=== PATIENT | male | born 1970 | race Caucasian/White ===

== ENCOUNTER 2017-08-28 09:35 | Observation (INO) | payer OTHER ==
[2017-08-28] MEDS ORDERED: Aspirin 81 MG Tab.Chew PO ONE (09:43)
[2017-08-28] MEDS ORDERED: Sodium Chloride 0.9% 10 ML Syringe FLUSH PRN (09:43)
[2017-08-28] MEDS ORDERED: Sodium Chloride 0.9% 2.5 ML Syringe FLUSH PRN (09:43)
--- NOTE | 2017-08-28 09:46 | EDM.PDOC ---
ED HPI GENERAL MEDICAL PROBLEM - General Chief Complaint: Chest Pain Stated Complaint: CHEST PAIN Time Seen by Provider: 08/28/17 09:42 - History of Present Illness INITIAL COMMENTS - FREE TEXT/NARRATIVE: HISTORY AND PHYSICAL: History of present illness: The patient is a 47-year-old male with a history of borderline elevated cholesterol and erectile dysfunction for which he takes a cholesterol med and Cialis daily and follows in our clinic and presents with left-sided chest pressure/pain started at midnight last night. He says that over the last almost 10 hours is been coming and going in the strongest that is been is 4/10. Currently in the ER it as a 0/10. He says the pain doesn't radiate but he does get numbness that shoots down his left arm and is mostly localized in his left thumb with this discomfort. He has had a headache on and off but currently has no headache. He says with the discomfort episodes he gets a little short of breath but no nausea no diaphoresis no abdominal pain. He has no leg pain or swelling and had a normal day yesterday without any systemic complaints of upper respiratory infections chest pain. Patient has been eating and drinking normally and admits to be a 2 pack-a-day smoker. He denies drug use. He has no significant family history and has never had a cardiac workup. He says at work he has relatively active and never has chest pain or shortness of breath. Patient took no medications prior to coming here. Initially the patient and want to come here but he called his boss who told him that should get checked out. Please note the patient did take his Cialis this morning Review of systems: As per history of present illness and below otherwise all systems reviewed and negative. Past medical history: As per history of present illness and as reviewed below otherwise noncontributory. Surgical history: As per history of present illness and as reviewed below otherwise noncontributory. Social history: No reported history of drug or alcohol abuse. Family history: As per history of present illness and as reviewed below otherwise noncontributory. Physical exam: Gen.: Well-developed thin man who is nontoxic and speaking clearly and easily in the ER. Vital signs were noted by me. HEENT: Atraumatic, normocephalic, negative for conjunctival pallor or scleral icterus, mucous membranes moist, throat clear, neck supple, nontender, trachea midline. Lungs: Clear to auscultation, breath sounds equal bilaterally, chest nontender. No work of breathing or sensory muscle use Heart: S1S2, regular, negative for clicks, rubs, or JVD. Abdomen: Soft, nondistended, nontender. Negative for masses or hepatosplenomegaly. NABS. Pelvis: Stable nontender. Genitourinary: Deferred. Rectal: Deferred. Extremities: Atraumatic, negative for cords or calf pain. Neurovascular unremarkable. No pedal edema Neuro: Awake, alert, oriented. Cranial nerves II through XII unremarkable. Cerebellum unremarkable. Motor and sensory unremarkable throughout. Exam nonfocal. Diagnostics: EKG x 2 chest x-ray CBC CMP INR troponin Therapeutics: IV O2 monitor aspirin morphine 1032: I discussed with the patient all testing results and recommended observation admission. He says that right now he is having a slight discomfort which she rates as a 1/10 and I will repeat the EKG and give him a dose of morphine. He is aware that I'm unable to give him nitrates due to his daily Cialis use. He says that along with the chest discomfort he is having the numbness again which is only from his elbow down to his hand and does not involve his chest wall or shoulder/upper extremity. There is no weakness. I will also contact the hospitalist and discussed this case with him. 1047: Dr. Barfield is aware of the case and is here seeing the patient. About 5 or 10 minutes ago I went into discussed all testing results with the patient and he said he was having some discomfort at a 1/10 and had this tingling sensation from his elbow down to his fingers but not proximally. Repeat EKG was performed which is unchanged. We'll give him some morphine and continue to monitor these symptoms as an inpatient Impression: Episodic chest pain/anginal equivalent Definitive disposition and diagnosis as appropriate pending reevaluation and review of above. chest Pain Score (Numeric/FACES): 1 - Related Data Allergies Allergy/AdvReac Type Severity Reaction Status Date / Time No Known Allergies Allergy Verified 08/28/17 09:52 Home Meds: Home Meds Tadalafil [Cialis] 5 mg PO DAILY 08/28/17 [History] atorvaSTATin [Lipitor] 40 mg PO BEDTIME 08/28/17 [History] Social & Family History - Tobacco Use Smoking Status *Q: Current Every Day Smoker Second Hand Smoke Exposure: No - Recreational Drug Use Recreational Drug Use: No ED ROS GENERAL - Review of Systems Review Of Systems: ROS reveals no pertinent complaints other than HPI. ED EXAM, GENERAL - Physical Exam Exam: See Below (See dictation) Course - Vital Signs Last Recorded V/S: Last Vital Signs Temp 36.4 C 08/28/17 09:35 Pulse 85 08/28/17 09:35 Resp 18 08/28/17 09:35 BP 152/103 H 08/28/17 09:35 Pulse Ox 99 08/28/17 09:42 - Orders/Labs/Meds Orders: Active Orders 24 hr Category Date Time Status Patient Status [ADT] Stat ADT 08/28/17 10:49 Ordered Cardiac Monitoring [RC] . DIRECTED Care 08/28/17 09:42 Active EKG Documentation Completion [RC] STAT Care 08/28/17 09:42 Active EKG Documentation Completion [RC] STAT Care 08/28/17 10:35 Active Oxygen Therapy, ED [RC] ASDIRECTED Care 08/28/17 09:42 Active Pulse Oximetry [RC] ASDIRECTED Care 08/28/17 09:42 Active Sodium Chloride 0.9% [Saline Flush] Med 08/28/17 09:43 Active 10 ml FLUSH ASDIRECTED PRN Sodium Chloride 0.9% [Saline Flush] Med 08/28/17 09:43 Active 2.5 ml FLUSH ASDIRECTED PRN Saline Lock Insert [OM.PC] Stat Oth 08/28/17 09:42 Ordered Medication Orders Sodium Chloride (Saline Flush) 10 ml FLUSH ASDIRECTED PRN PRN Reason: Keep Vein Open Last Admin: 08/28/17 09:48 Dose: 10 ml Sodium Chloride (Saline Flush) 2.5 ml FLUSH ASDIRECTED PRN PRN Reason: Keep Vein Open Last Admin: 08/28/17 09:48 Dose: 2.5 ml Labs: Laboratory Tests 08/28/17 08/28/17 08/28/17 Range/Units 09:40 09:40 09:40 WBC 14.88 H (4.0-11.0) K/uL RBC 4.74 (4.50-5.90) M/uL Hgb 16.4 (13.0-17.0) g/dL Hct 47.3 (38.0-50.0) % MCV 99.8 H (80.0-98.0) fL MCH 34.6 H (27.0-32.0) pg MCHC 34.7 (31.0-37.0) g/dL RDW Std Deviation 50.2 (28.0-62.0) fl RDW Coeff of Yan 14 (11.0-15.0) % Plt Count 240 (150-400) K/uL MPV 10.10 (7.40-12.00) fL Neut % (Auto) 80.6 H (48.0-80.0) % Lymph % (Auto) 11.8 L (16.0-40.0) % [place] % (Auto) 6.7 (0.0-15.0) % Eos % (Auto) 0.7 (0.0-7.0) % Baso % (Auto) 0.2 (0.0-1.5) % Neut # (Auto) 12.0 H (1.4-5.7) K/uL Lymph # (Auto) 1.8 (0.6-2.4) K/uL [place] # (Auto) 1.0 H (0.0-0.8) K/uL Eos # (Auto) 0.1 (0.0-0.7) K/uL Baso # (Auto) 0.0 (0.0-0.1) K/uL Nucleated RBC % 0.0 /100WBC Nucleated RBCs # 0 K/uL INR 0.98 (0.86-1.11) Sodium 138 (136-146) mmol/L Potassium 3.8 (3.5-5.1) mmol/L Chloride 105 (98-110) mmol/L Carbon Dioxide 23 (21-31) mmol/L BUN 5 L (6.0-23.0) mg/dL Creatinine 0.8 (0.6-1.5) mg/dL Est Cr Clr Drug Dosing 140.15 mL/min Estimated GFR (MDRD) > 60.0 ml/min Glucose 99 (60-110) mg/dL Calcium 9.7 (8.8-10.8) mg/dL Total Bilirubin 0.8 (0.1-1.5) mg/dL AST 19 (5-40) IU/L ALT 15 (8-54) IU/L Alkaline Phosphatase 131 (40-150) Troponin I < 0.10 (0.0-0.29) NG/ML Total Protein 7.9 (6.0-8.0) g/dL Albumin 4.4 (3.5-5.0) g/dL Globulin 3.5 (2.0-3.5) g/dL Albumin/Globulin Ratio 1.3 (1.3-2.8) Meds: Medications Generic Name Dose Route Start Last Admin Trade Name Freq PRN Reason Stop Dose Admin Sodium Chloride 10 ml 08/28/17 09:43 08/28/17 09:48 Saline Flush FLUSH 10 ml ASDIRECTED PRN Administration Keep Vein Open Sodium Chloride 2.5 ml 08/28/17 09:43 08/28/17 09:48 Saline Flush FLUSH 2.5 ml ASDIRECTED PRN Administration Keep Vein Open Discontinued Medications Generic Name Dose Route Start Last Admin Trade Name Freq PRN Reason Stop Dose Admin Aspirin 324 mg 08/28/17 09:43 08/28/17 09:47 Aspirin PO 08/28/17 09:44 324 mg ONETIME ONE Administration Morphine Sulfate 2 mg 08/28/17 10:35 08/28/17 10:44 Morphine IVPUSH 08/28/17 10:36 2 mg ONETIME ONE Administration Departure - Departure Time of Disposition: 10:50 Disposition: Refer to Observation Condition: Good Clinical Impression: Chest pain Qualifiers: Chest pain type: unspecified Qualified Code(s): R07.9 - Chest pain, unspecified - Discharge Information Referrals: PCP,Unknown [Primary Care Provider] - Forms: ED Department Discharge - My Orders Last 24 Hours: My Active Orders 08/28/17 09:42 Cardiac Monitoring [RC] . DIRECTED EKG Documentation Completion [RC] STAT Oxygen Therapy, ED [RC] ASDIRECTED Pulse Oximetry [RC] ASDIRECTED Saline Lock Insert [OM.PC] Stat 08/28/17 09:43 Sodium Chloride 0.9% [Saline Flush] 10 ml FLUSH ASDIRECTED PRN Sodium Chloride 0.9% [Saline Flush] 2.5 ml FLUSH ASDIRECTED PRN 08/28/17 10:35 EKG Documentation Completion [RC] STAT 08/28/17 10:49 Patient Status [ADT] Stat - Assessment/Plan Last 24 Hours: My Active Orders 08/28/17 09:42 Cardiac Monitoring [RC] . DIRECTED EKG Documentation Completion [RC] STAT Oxygen Therapy, ED [RC] ASDIRECTED Pulse Oximetry [RC] ASDIRECTED Saline Lock Insert [OM.PC] Stat 08/28/17 09:43 Sodium Chloride 0.9% [Saline Flush] 10 ml FLUSH ASDIRECTED PRN Sodium Chloride 0.9% [Saline Flush] 2.5 ml FLUSH ASDIRECTED PRN 08/28/17 10:35 EKG Documentation Completion [RC] STAT 08/28/17 10:49 Patient Status [ADT] Stat
--- NOTE | 2017-08-28 10:16 | CR ---
EXAMINATION: Portable chest radiograph. HISTORY: Shortness of breath. FINDINGS: The trachea is midline. The cardiomediastinal silhouette is within normal limits. No pulmonary infilt rates, effusions or pneumothorax. Osseous structures appear unremarkable. IMPRESSION: No acute cardiopulmonary process.
[2017-08-28 10:26] LABS: CHLORIDE,CL 105 mmol/L (98-110); SODIUM,NA 138 mmol/L (136-146)
[2017-08-28] MEDS ORDERED: Morphine 2 MG/ML Syringe IVPUSH ONE (10:35)
[2017-08-28] MEDS ORDERED: Morphine 2 MG/ML Syringe IVPUSH PRN (11:42)
[2017-08-28] MEDS ORDERED: Enoxaparin 40 MG/0.4 ML Syringe SUBCUT SCH (11:45)
[2017-08-28] MEDS ORDERED: Nicotine 21 MG/24 Hr Patch TRDERM SCH (12:00)
--- NOTE | 2017-08-28 13:41 | PCM.HP ---
<Bryce Guillermo - Last Filed: 08/28/17 13:36> H&P History of Present Illness - General Date of Service: 08/28/17 Source of Information: Patient History Limitations: Reports: No Limitations - History of Present Illness Initial Comments - Free Text/Narative: 47-year-old male with a past history of hyperlipidemia presents to the emergency room today complaining of chest pain onset sometime last night. Patient tells me that he has been expressing chest "tightness "in the center of his chest radiating into his left thumb. He also notices that he had some numbness and tingling of the thumb. He feels that it also intermittently he stands up into his elbow and causes numbness throughout. Currently, he states that his chest pain is about a 1 out of 10. He denies any fevers, chills, shortness of breath, nausea or vomiting. ER course EKG shows normal rhythm without ST elevation Troponin first set is negative Full dose aspirin was given Nitroglycerin was held secondary to patient's daily Cialis use chest Pain Score (Numeric/FACES): 2 - Related Data Allergies/Adverse Reactions: Allergies Allergy/AdvReac Type Severity Reaction Status Date / Time No Known Allergies Allergy Verified 08/28/17 09:52 Home Medications: Home Meds Tadalafil [Cialis] 5 mg PO DAILY 08/28/17 [History] atorvaSTATin [Lipitor] 40 mg PO BEDTIME 08/28/17 [History] Past Medical History - Past Health History Medical/Surgical History: Denies Medical/Surgical History HEENT History: Reports: Impaired Vision Other HEENT History: with glasses Cardiovascular History: Reports: High Cholesterol - Infectious Disease History Infectious Disease History: Reports: Chicken Pox Social & Family History - Family History Family Medical History: Noncontributory - Tobacco Use Smoking Status *Q: Current Every Day Smoker Years of Tobacco use: 30 Packs/Tins Daily: 2 Second Hand Smoke Exposure: No - Caffeine Use Caffeine Use: Reports: Coffee, Soda Caffeine Use Comment: 2 cups daily - Alcohol Use Days Per Week of Alcohol Use: 7 Number of Drinks Per Day: 2 Total Drinks Per Week: 14 Date of Last Drink: 08/27/17 - Recreational Drug Use Recreational Drug Use: No H&P Review of Systems - Review of Systems: Review Of Systems: See Below General: Reports: No Symptoms HEENT: Reports: No Symptoms Pulmonary: Denies: Shortness of Breath, Wheezing, Pleuritic Chest Pain, Cough, Sputum Cardiovascular: Reports: Chest Pain. Denies: Palpitations, Dyspnea on Exertion Gastrointestinal: Denies: Abdominal Pain, Black Stool, Bloody Stool, Constipation, Diarrhea Musculoskeletal: Reports: Other (See history of present illness) Skin: Reports: No Symptoms. Denies: Cyanosis, Jaundice, Mottled Psychiatric: Reports: No Symptoms Neurological: Reports: Numbness, Other (See history of present illness). Denies : Seizure, Syncope, Tingling, Tremors Hematologic/Lymphatic: Reports: No Symptoms Immunologic: Reports: No Symptoms Exam - Exam Exam: See Below - Vital Signs Vital Signs: Last Vital Signs Temp 36.4 C 08/28/17 11:42 Pulse 75 08/28/17 11:42 Resp 18 08/28/17 11:42 BP 145/96 H 08/28/17 11:42 Pulse Ox 97 08/28/17 11:42 Weight: 86.636 kg - Exam General: Alert, Oriented, Cooperative HEENT: Conjunctiva Clear, EACs Clear, EOMI, Hearing Intact, Mucosa Moist & Tye , Nares Patent Neck: Supple, Trachea Midline, +2 Carotid Pulse wo Bruit. No: Lymphadenopathy, Carotid Bruit, JVD Lungs: Clear to Auscultation, Normal Respiratory Effort Cardiovascular: Regular Rate, Regular Rhythm, Normal S1, Normal S2 GI/Abdominal Exam: Normal Bowel Sounds, Soft, Non-Tender Back Exam: No: CVA Tenderness (L), CVA Tenderness (R), Paraspinal Tenderness Extremities: Normal Inspection, Normal Range of Motion, No Pedal Edema, Normal Capillary Refill Skin: Warm, Intact Neurological: Cranial Nerves Intact Neuro Extensive - Mental Status: Alert, Oriented x3 Neuro Extensive - Motor, Sensory, Reflexes: CN II-XII Intact Psychiatric: Alert, Normal Affect, Normal Mood - Patient Data Result Diagrams: 08/28/17 09:40 08/28/17 09:40 *Q Meaningful Use (ADM) - VTE *Q VTE Criteria *Q: - Stroke *Q Stroke Criteria *Q: - AMI *Q AMI Criteria *Q: Problem List Initiated/Reviewed/Updated: Yes Orders Last 24hrs: Active Orders 24 hr Category Date Time Status Oxygen Therapy [RC] PRN Care 08/28/17 11:42 Active Telemetry Monitoring [Cardiac Monitoring] [RC] Q8H Care 08/28/17 10:57 Active Up ad Argelia [RC] ASDIRECTED Care 08/28/17 11:42 Active VTE/DVT Education [RC] PER UNIT ROUTINE Care 08/28/17 11:42 Active Vital Signs [RC] Q4H Care 08/28/17 11:42 Active Regular Diet [DIET] Diet 08/28/17 Lunch Active BASIC METABOLIC PANEL,BMP [CHEM] AM Lab 08/29/17 05:11 Ordered CBC WITH AUTO DIFF [HEME] AM Lab 08/29/17 05:11 Ordered TROPONIN I [CHEM] Routine Lab 08/28/17 15:00 Ordered TROPONIN I [CHEM] Routine Lab 08/28/17 21:00 Ordered Enoxaparin [Lovenox] Med 08/28/17 11:45 Active 40 mg SUBCUT Q24H Morphine Med 08/28/17 11:42 Active 2 mg IVPUSH Q2H PRN Nicotine [Habitrol] Med 08/28/17 12:00 Active 21 mg TRDERM Q24H atorvaSTATin [Lipitor] Med 08/28/17 21:00 Active 40 mg PO BEDTIME Resuscitation Status Routine Resus Stat 08/28/17 11:42 Ordered Medication Orders Atorvastatin Calcium (Lipitor) [address] [facility] Enoxaparin Sodium (Lovenox) [address] [facility] Last Admin: 08/28/17 12:11 Dose: 40 mg Morphine Sulfate (Morphine) 2 mg IVPUSH Q2H PRN PRN Reason: Pain (severe 7-10) Stop: 08/29/17 11:43 Nicotine (Habitrol) [address] [facility] Last Admin: 08/28/17 12:11 Dose: 21 mg Sodium Chloride (Saline Flush) 10 ml FLUSH ASDIRECTED PRN PRN Reason: Keep Vein Open Last Admin: 08/28/17 09:48 Dose: 10 ml Sodium Chloride (Saline Flush) 2.5 ml FLUSH ASDIRECTED PRN PRN Reason: Keep Vein Open Last Admin: 08/28/17 09:48 Dose: 2.5 ml Assessment/Plan Comment:: Assessment #1. ACS rule out #2. Chest pain #3. Numbness in the left hand #4. History of hyperlipidemia #5. History of BPH #6. History of significant tobacco abuse #7. History of alcohol use Plan #1. Admit to the regular floor for observation #2. Continuous telemetry #3. Vital signs per floor routine, ins and outs per floor routine #4. Troponin every 6 hours 2 more sets #5. Regular diet #6. Nicotine patch as per Dr. Barfield recommendation #7. Continue home dose of Crestor #8. Anticipate discharge tomorrow <Jhon Barfield - Last Filed: 08/29/17 15:41> H&P History of Present Illness - General Admit Problem/Dx: I performed a history and physical examination of the patient and I have discussed the management with the resident. I have reviewed the residents note and agree with the documented findings and plan of care Exam - Vital Signs Vital Signs: Last Vital Signs Temp 37.1 C 08/29/17 07:11 Pulse 94 08/29/17 07:11 Resp 18 08/29/17 07:11 BP 149/79 H 08/29/17 07:11 Pulse Ox 95 08/29/17 07:11 - Patient Data Lab Results Last 24 hrs: Laboratory Results - last 24 hr 08/28/17 08/29/17 08/29/17 Range/Units 20:57 04:53 04:53 WBC 12.17 H (4.0-11.0) K/uL RBC 4.44 L (4.50-5.90) M/uL Hgb 15.1 (13.0-17.0) g/dL Hct 44.7 (38.0-50.0) % MCV 100.7 H (80.0-98.0) fL MCH 34.0 H (27.0-32.0) pg MCHC 33.8 (31.0-37.0) g/dL RDW Std Deviation 51.4 (28.0-62.0) fl RDW Coeff of Yan 14 (11.0-15.0) % Plt Count 228 (150-400) K/uL MPV 10.10 (7.40-12.00) fL Neut % (Auto) 75.2 (48.0-80.0) % Lymph % (Auto) 14.4 L (16.0-40.0) % [place] % (Auto) 9.0 (0.0-15.0) % Eos % (Auto) 1.2 (0.0-7.0) % Baso % (Auto) 0.2 (0.0-1.5) % Neut # (Auto) 9.1 H (1.4-5.7) K/uL Lymph # (Auto) 1.8 (0.6-2.4) K/uL [place] # (Auto) 1.1 H (0.0-0.8) K/uL Eos # (Auto) 0.2 (0.0-0.7) K/uL Baso # (Auto) 0.0 (0.0-0.1) K/uL Nucleated RBC % 0.0 /100WBC Nucleated RBCs # 0 K/uL Sodium 141 (136-146) mmol/L Potassium 4.1 (3.5-5.1) mmol/L Chloride 110 (98-110) mmol/L Carbon Dioxide 22 (21-31) mmol/L BUN 11 (6.0-23.0) mg/dL Creatinine 0.8 (0.6-1.5) mg/dL Est Cr Clr Drug Dosing 139.88 mL/min Estimated GFR (MDRD) > 60.0 ml/min Glucose 99 (60-110) mg/dL Calcium 9.2 (8.8-10.8) mg/dL Troponin I < 0.10 (0.0-0.29) NG/ML Result Diagrams: 08/29/17 04:53 08/29/17 04:53 *Q Meaningful Use (ADM) - VTE *Q VTE Criteria *Q: - Stroke *Q Stroke Criteria *Q: - AMI *Q AMI Criteria *Q: Orders Last 24hrs: Active Orders 24 hr Category Date Time Status Discontinue Telemetry Monitoring [Cardiac Monitoring Care 08/29/17 08:41 Active Discontinue] [RC] Click to Edit Ready for Discharge [RC] PER UNIT ROUTINE Care 08/29/17 08:33 Active
[2017-08-28] MEDS ORDERED: Alum Hydrox/Mag Hydrox/Simeth 15 ML, Lidocaine 2% 5 ML PO ONE ×2 (18:22)
[2017-08-28] MEDS ORDERED: atorvaSTATin 40 MG Tab PO SCH (21:00)
[2017-08-28] MEDS ORDERED: Ketorolac 30 MG/ML SDV IVPUSH ONE (22:00)
[2017-08-29 05:30] LABS: CHLORIDE,CL 110 mmol/L (98-110); SODIUM,NA 141 mmol/L (136-146)
[2017-08-29 07:12] VITALS: BP 149/79
--- NOTE | 2017-08-29 11:21 | PCM.DCSUM1 ---
<Bryce Guillermo - Last Filed: 08/29/17 11:15> Discharge Summary - Hospital Course Free Text/Narrative:: Admission date August 28, 2017 Discharge date August 29, 2017 Admission diagnosis #1. ACS rule out #2. Chest pain #3. Numbness in the left hand #4. History of hyperlipidemia, BPH #5. History of tobacco abuse #6. History of alcohol use Discharge diagnosis #1. ACS ruled out #2. Chest pain that resolved #3. History of hyperlipidemia, BPH, tobacco use, alcohol use Hospital course: This is a 47-year-old male with the above past medical history as mentioned that presented to the emergency room on 28 August complaining of chest pain which began around midnight at that day. He described it as centralized chest pain accompanied by numbness in his left thumb. He described it more of tightness rather than pain. Patient was then admitted to the floor for observation and ACS rule out after obtaining a negative troponin in the emergency room along with a unremarkable chest x-ray and EKG. He was given a full dose aspirin in the ER. Nitroglycerin was held secondary to Cialis use daily. On the floor, patient was placed on telemetry, troponins were trended which are negative 3. Later on in the evening of the same day of admission, this patient was complaining of persistent chest pain with a another reassuring EKG. He was given Toradol once which did appear to help with the pain. At the time of discharge, the patient was symptom-free. He denied any chest pain, palpitations, nausea or vomiting or any numbness or tingling. Follow-up: Patient to follow-up with Dr. Guillermo, primary care provider along with cardiology. He told me that he'll be driving out of town this weekend so appointments were made for the following week. Return precautions: Patient is advised to return to seek medical care if he expresses chest pain, palpitations, numbness or tingling again. Patient agrees to the plan. He is also scheduled for a outpatient nuclear stress test. - Discharge Data Discharge Date: 08/29/17 Discharge Disposition: Home, Self-Care 01 Condition: Stable - Patient Instructions Diet: Regular Diet as Tolerated Driving: May Drive Today Showering/Bathing: May Shower - Discharge Plan Home Medications: Home Meds Tadalafil [Cialis] 5 mg PO DAILY 08/28/17 [History] atorvaSTATin [Lipitor] 40 mg PO BEDTIME 08/28/17 [History] Patient Handouts: Chest Wall Pain, [id number], Nonspecific Chest Pain, Easy- to-Read Referrals: Miguel Cline MD [Physician] - 09/23/17 10:00 am () Bryce Guillermo MD [Resident] - 09/11/17 2:30 pm - Discharge Summary/Plan Comment DC Time >30 min.: No Discharge Summary/Plan Comment: Admission date August 28, 2017 Discharge date August 29, 2017 Admission diagnosis #1. ACS rule out #2. Chest pain #3. Numbness in the left hand #4. History of hyperlipidemia, BPH #5. History of tobacco abuse #6. History of alcohol use Discharge diagnosis #1. ACS ruled out #2. Chest pain that resolved #3. History of hyperlipidemia, BPH, tobacco use, alcohol use Hospital course: This is a 47-year-old male with the above past medical history as mentioned that presented to the emergency room on 28 August complaining of chest pain which began around midnight at that day. He described it as centralized chest pain accompanied by numbness in his left thumb. He described it more of tightness rather than pain. Patient was then admitted to the floor for observation and ACS rule out after obtaining a negative troponin in the emergency room along with a unremarkable chest x-ray and EKG. He was given a full dose aspirin in the ER. Nitroglycerin was held secondary to Cialis use daily. On the floor, patient was placed on telemetry, troponins were trended which are negative 3. Later on in the evening of the same day of admission, this patient was complaining of persistent chest pain with a another reassuring EKG. He was given Toradol once which did appear to help with the pain. At the time of discharge, the patient was symptom-free. He denied any chest pain, palpitations, nausea or vomiting or any numbness or tingling. Follow-up: Patient to follow-up with Dr. Guillermo, primary care provider along with cardiology. He told me that he'll be driving out of town this weekend so appointments were made for the following week. Return precautions: Patient is advised to return to seek medical care if he expresses chest pain, palpitations, numbness or tingling again. Patient agrees to the plan. He is also scheduled for a outpatient nuclear stress test. - Patient Data Vitals - Most Recent: Last Vital Signs Temp 37.1 C 08/29/17 07:11 Pulse 94 08/29/17 07:11 Resp 18 08/29/17 07:11 BP 149/79 H 08/29/17 07:11 Pulse Ox 95 08/29/17 07:11 Weight - Most Recent: 86.636 kg I&O - Last 24 hours: Intake & Output 08/28/17 08/29/17 08/29/17 22:59 06:59 14:59 Intake Total 150 635 500 Output Total 550 675 Balance -400 -40 500 Lab Results - Last 24 hrs: Laboratory Results - last 24 hr 08/28/17 08/28/17 08/29/17 Range/Units 15:15 20:57 04:53 WBC 12.17 H (4.0-11.0) K/uL RBC 4.44 L (4.50-5.90) M/uL Hgb 15.1 (13.0-17.0) g/dL Hct 44.7 (38.0-50.0) % MCV 100.7 H (80.0-98.0) fL MCH 34.0 H (27.0-32.0) pg MCHC 33.8 (31.0-37.0) g/dL RDW Std Deviation 51.4 (28.0-62.0) fl RDW Coeff of Yan 14 (11.0-15.0) % Plt Count 228 (150-400) K/uL MPV 10.10 (7.40-12.00) fL Neut % (Auto) 75.2 (48.0-80.0) % Lymph % (Auto) 14.4 L (16.0-40.0) % Owsley % (Auto) 9.0 (0.0-15.0) % Eos % (Auto) 1.2 (0.0-7.0) % Baso % (Auto) 0.2 (0.0-1.5) % Neut # (Auto) 9.1 H (1.4-5.7) K/uL Lymph # (Auto) 1.8 (0.6-2.4) K/uL Owsley # (Auto) 1.1 H (0.0-0.8) K/uL Eos # (Auto) 0.2 (0.0-0.7) K/uL Baso # (Auto) 0.0 (0.0-0.1) K/uL Nucleated RBC % 0.0 /100WBC Nucleated RBCs # 0 K/uL Sodium (136-146) mmol/L Potassium (3.5-5.1) mmol/L Chloride (98-110) mmol/L Carbon Dioxide (21-31) mmol/L BUN (6.0-23.0) mg/dL Creatinine (0.6-1.5) mg/dL Est Cr Clr Drug Dosing mL/min Estimated GFR (MDRD) ml/min Glucose (60-110) mg/dL Calcium (8.8-10.8) mg/dL Troponin I < 0.10 < 0.10 (0.0-0.29) NG/ML 08/29/17 Range/Units 04:53 WBC (4.0-11.0) K/uL RBC (4.50-5.90) M/uL Hgb (13.0-17.0) g/dL Hct (38.0-50.0) % MCV (80.0-98.0) fL MCH (27.0-32.0) pg MCHC (31.0-37.0) g/dL RDW Std Deviation (28.0-62.0) fl RDW Coeff of Yan (11.0-15.0) % Plt Count (150-400) K/uL MPV (7.40-12.00) fL Neut % (Auto) (48.0-80.0) % Lymph % (Auto) (16.0-40.0) % Owsley % (Auto) (0.0-15.0) % Eos % (Auto) (0.0-7.0) % Baso % (Auto) (0.0-1.5) % Neut # (Auto) (1.4-5.7) K/uL Lymph # (Auto) (0.6-2.4) K/uL Owsley # (Auto) (0.0-0.8) K/uL Eos # (Auto) (0.0-0.7) K/uL Baso # (Auto) (0.0-0.1) K/uL Nucleated RBC % /100WBC Nucleated RBCs # K/uL Sodium 141 (136-146) mmol/L Potassium 4.1 (3.5-5.1) mmol/L Chloride 110 (98-110) mmol/L Carbon Dioxide 22 (21-31) mmol/L BUN 11 (6.0-23.0) mg/dL Creatinine 0.8 (0.6-1.5) mg/dL Est Cr Clr Drug Dosing 139.88 mL/min Estimated GFR (MDRD) > 60.0 ml/min Glucose 99 (60-110) mg/dL Calcium 9.2 (8.8-10.8) mg/dL Troponin I (0.0-0.29) NG/ML Med Orders - Current: Current Medications Discontinued Medications Aspirin (Aspirin) 324 mg PO ONETIME ONE Stop: 08/28/17 09:44 Last Admin: 08/28/17 09:47 Dose: 324 mg Atorvastatin Calcium (Lipitor) 40 mg PO BEDTIME [facility] Last Admin: 08/28/17 21:48 Dose: 40 mg Al Hydroxide/Mg Hydroxide 15 (ml/ Lidocaine HCl 5 ml) 0 ml PO ONETIME ONE Stop: 08/28/17 18:23 Last Admin: 08/28/17 18:37 Dose: 1 each Enoxaparin Sodium (Lovenox) 40 mg SUBCUT Q24H [facility] Last Admin: 08/28/17 12:11 Dose: 40 mg Ketorolac Tromethamine (Toradol) 30 mg IVPUSH ONETIME ONE Stop: 08/28/17 22:01 Last Admin: 08/28/17 21:48 Dose: 30 mg Morphine Sulfate (Morphine) 2 mg IVPUSH ONETIME ONE Stop: 08/28/17 10:36 Last Admin: 08/28/17 10:44 Dose: 2 mg Morphine Sulfate (Morphine) 2 mg IVPUSH Q2H PRN PRN Reason: Pain (severe 7-10) Stop: 08/29/17 11:43 Last Admin: 08/28/17 16:33 Dose: 2 mg Nicotine (Habitrol) 21 mg TRDERM Q24H [facility] Last Admin: 08/28/17 12:11 Dose: 21 mg Sodium Chloride (Saline Flush) 10 ml FLUSH ASDIRECTED PRN PRN Reason: Keep Vein Open Last Admin: 08/28/17 09:48 Dose: 10 ml Sodium Chloride (Saline Flush) 2.5 ml FLUSH ASDIRECTED PRN PRN Reason: Keep Vein Open Last Admin: 08/28/17 09:48 Dose: 2.5 ml *Q Meaningful Use (DIS) - VTE *Q VTE Criteria *Q: - Stroke *Q Stroke Criteria *Q: - AMI *Q AMI Criteria *Q: <Jhon Barfield - Last Filed: 08/29/17 15:44> Discharge Summary - Hospital Course HPI Initial Comments: I performed a history and physical examination of the patient and I have discussed the management with the resident. I have reviewed the residents note and agree with the documented findings and plan of care - Patient Data Vitals - Most Recent: Last Vital Signs Temp 37.1 C 08/29/17 07:11 Pulse 94 08/29/17 07:11 Resp 18 08/29/17 07:11 BP 149/79 H 08/29/17 07:11 Pulse Ox 95 08/29/17 07:11 I&O - Last 24 hours: Intake & Output 08/29/17 08/29/17 08/29/17 06:59 14:59 22:59 Intake Total 635 500 Output Total 675 Balance -40 500 Lab Results - Last 24 hrs: Laboratory Results - last 24 hr 08/28/17 08/29/17 08/29/17 Range/Units 20:57 04:53 04:53 WBC 12.17 H (4.0-11.0) K/uL RBC 4.44 L (4.50-5.90) M/uL Hgb 15.1 (13.0-17.0) g/dL Hct 44.7 (38.0-50.0) % MCV 100.7 H (80.0-98.0) fL MCH 34.0 H (27.0-32.0) pg MCHC 33.8 (31.0-37.0) g/dL RDW Std Deviation 51.4 (28.0-62.0) fl RDW Coeff of Yan 14 (11.0-15.0) % Plt Count 228 (150-400) K/uL MPV 10.10 (7.40-12.00) fL Neut % (Auto) 75.2 (48.0-80.0) % Lymph % (Auto) 14.4 L (16.0-40.0) % Owsley % (Auto) 9.0 (0.0-15.0) % Eos % (Auto) 1.2 (0.0-7.0) % Baso % (Auto) 0.2 (0.0-1.5) % Neut # (Auto) 9.1 H (1.4-5.7) K/uL Lymph # (Auto) 1.8 (0.6-2.4) K/uL Owsley # (Auto) 1.1 H (0.0-0.8) K/uL Eos # (Auto) 0.2 (0.0-0.7) K/uL Baso # (Auto) 0.0 (0.0-0.1) K/uL Nucleated RBC % 0.0 /100WBC Nucleated RBCs # 0 K/uL Sodium 141 (136-146) mmol/L Potassium 4.1 (3.5-5.1) mmol/L Chloride 110 (98-110) mmol/L Carbon Dioxide 22 (21-31) mmol/L BUN 11 (6.0-23.0) mg/dL Creatinine 0.8 (0.6-1.5) mg/dL Est Cr Clr Drug Dosing 139.88 mL/min Estimated GFR (MDRD) > 60.0 ml/min Glucose 99 (60-110) mg/dL Calcium 9.2 (8.8-10.8) mg/dL Troponin I < 0.10 (0.0-0.29) NG/ML Med Orders - Current: Current Medications Discontinued Medications Aspirin (Aspirin) 324 mg PO ONETIME ONE Stop: 08/28/17 09:44 Last Admin: 08/28/17 09:47 Dose: 324 mg Atorvastatin Calcium (Lipitor) 40 mg PO BEDTIME [facility] Last Admin: 08/28/17 21:48 Dose: 40 mg Al Hydroxide/Mg Hydroxide 15 (ml/ Lidocaine HCl 5 ml) 0 ml PO ONETIME ONE Stop: 08/28/17 18:23 Last Admin: 08/28/17 18:37 Dose: 1 each Enoxaparin Sodium (Lovenox) 40 mg SUBCUT Q24H [facility] Last Admin: 08/28/17 12:11 Dose: 40 mg Ketorolac Tromethamine (Toradol) 30 mg IVPUSH ONETIME ONE Stop: 08/28/17 22:01 Last Admin: 08/28/17 21:48 Dose: 30 mg Morphine Sulfate (Morphine) 2 mg IVPUSH ONETIME ONE Stop: 08/28/17 10:36 Last Admin: 08/28/17 10:44 Dose: 2 mg Morphine Sulfate (Morphine) 2 mg IVPUSH Q2H PRN PRN Reason: Pain (severe 7-10) Stop: 08/29/17 11:43 Last Admin: 08/28/17 16:33 Dose: 2 mg Nicotine (Habitrol) 21 mg TRDERM Q24H [facility] Last Admin: 08/28/17 12:11 Dose: 21 mg Sodium Chloride (Saline Flush) 10 ml FLUSH ASDIRECTED PRN PRN Reason: Keep Vein Open Last Admin: 08/28/17 09:48 Dose: 10 ml Sodium Chloride (Saline Flush) 2.5 ml FLUSH ASDIRECTED PRN PRN Reason: Keep Vein Open Last Admin: 08/28/17 09:48 Dose: 2.5 ml *Q Meaningful Use (DIS) - VTE *Q VTE Criteria *Q: - Stroke *Q Stroke Criteria *Q: - AMI *Q AMI Criteria *Q:
== END 2017-08-29 09:40 | disposition home or self-care (01) ==
LOC: MW.ED 09:35 → MW.MS 11:05
PROVIDERS: ADMIT Internal Medicine; ATTEND Internal Medicine
DX: R07.9 Chest pain, unspecified (principal); E78.00 Pure hypercholesterolemia, unspecified; F17.210 Nicotine dependence, cigarettes, uncomplicated; Z79.899 Other long term (current) drug therapy
CPT/HCPCS: 36415; 71010; 80048; 80053; 84484; 85025; 85610; 93005; 96372; 96374; 96375; 96376; 99285; A9270; G0378; J1650; J1885; J2270; 99284

== ENCOUNTER 2022-03-30 08:28 | Day surgery (SDC) | payer BC ==
[~2022-03-30 08:28] MED LIST: Lactated Ringers 1,000 ML IV SCH
[2022-03-30] MEDS ORDERED: propofoL 50 ML ONE (09:32)
[2022-03-30] MEDS ORDERED: Lidocaine 2% 5 ML SDV ONE (09:53)
[2022-03-30] MEDS ORDERED: fentaNYL 100 MCG/2 ML SDV ONE (09:53)
[2022-03-30 10:49] VITALS: BP 100/69; PULSE 67
== END 2022-03-30 11:05 | disposition home or self-care (01) ==
LOC: MW.SDS 08:28
PROVIDERS: ATTEND Surgery
DX: D12.4 Benign neoplasm of descending colon (principal); D12.5 Benign neoplasm of sigmoid colon; K57.30 Diverticulosis of large intestine without perforation or abscess without bleeding; J44.9 Chronic obstructive pulmonary disease, unspecified; H54.7 Unspecified visual loss; F17.290 Nicotine dependence, other tobacco product, uncomplicated; Z79.899 Other long term (current) drug therapy
CPT/HCPCS: 45385; J2704; J3010; J7120; 00812

== ENCOUNTER 2024-01-03 06:20 | Day surgery (SDC) | payer BC, OTHER ==
[2024-01-03] MEDS: Lactated Ringers 1,000 ML IV SCH (06:50)
[2024-01-03] MEDS ORDERED: Bupivacaine 0.5% 30 ML SDV ONE ×2 (07:24→07:45)
[2024-01-03] MEDS ORDERED: Lidocaine 1% 20 ML MDV ONE ×2 (07:25→07:45)
[2024-01-03] MEDS ORDERED: dexmedeTOMIDine HCl 200 MCG/2 ML SDV ONE ×2 (07:31)
[2024-01-03] MEDS ORDERED: Propofol 200 MG/20 ML SDV ONE ×2 (07:31→10:50)
[2024-01-03] MEDS ORDERED: fentaNYL 250 MCG/5 ML SDV ONE (07:31)
[2024-01-03] MEDS ORDERED: Water For Injection, Sterile 20 ML ONE (07:32)
[2024-01-03] MEDS ORDERED: Rocuronium Bromide 50 MG/5 ML Syringe ONE (07:55)
[2024-01-03] MEDS ORDERED: Ketamine 500 mg/10 ML MDV ONE (07:56)
[2024-01-03] MEDS ORDERED: Albuterol 0.083% 2.5 MG/3 ML Neb Soln NEB PRN (07:59)
[2024-01-03] MEDS ORDERED: droPERidol 5 MG/2 ML SDV IVPUSH PRN (07:59)
[2024-01-03] MEDS ORDERED: HYDROmorphone 1 MG/ML Syringe IVPUSH PRN (07:59)
[2024-01-03] MEDS ORDERED: Metoclopramide 10 MG/2 ML SDV IVPUSH PRN (07:59)
[2024-01-03] MEDS ORDERED: Naloxone 0.4 MG/ML SDV IVPUSH PRN (07:59)
[2024-01-03] MEDS ORDERED: Morphine 2 MG/ML SYRINGE IVPUSH PRN (07:59)
[2024-01-03] MEDS ORDERED: Ondansetron 4 MG/2 ML SDV IVPUSH PRN (07:59)
[2024-01-03] MEDS ORDERED: fentaNYL 50 MCG/ML SDV IVPUSH PRN (07:59)
[2024-01-03] MEDS ORDERED: ceFAZolin 2 GM in Sodium Chloride 0.9% 50 ML IV ONE (08:00)
[2024-01-03] MEDS ORDERED: Lactated Ringers 1,000 ML IV SCH (08:00)
[2024-01-03] MEDS ORDERED: Dexamethasone 4 MG/ML 5 ML MDV ONE (08:16)
[2024-01-03] MEDS ORDERED: ceFAZolin 2 GM Vial ONE (08:16)
[2024-01-03] MEDS ORDERED: Ondansetron 4 MG/2 ML SDV ONE (08:16)
[2024-01-03] MEDS ORDERED: HYDROmorphone 2 MG/ML Syringe ONE (10:14)
[2024-01-03] MEDS ORDERED: Ketorolac 30 MG/ML SDV ONE (11:09)
[2024-01-03] MEDS ORDERED: Sugammadex Sodium 200 MG/2 ML VIAL IV ONE (11:09)
[2024-01-03] MEDS ORDERED: Ropivacaine 0.5% 5 MG/ML 30 ML SDV ONE (12:04)
[2024-01-03 13:34] VITALS: BP 120/68; PULSE 62
== END 2024-01-03 13:10 | disposition home or self-care (01) ==
LOC: MW.SDS 06:20
PROVIDERS: ATTEND Podiatrist Foot & Ankle Surgery
DX: M20.11 Hallux valgus (acquired), right foot (principal); M21.611 Bunion of right foot
CPT/HCPCS: 28297; 64447; C1713; J0131; J0665; J0690; J1100; J1170; J1885; J2405; J2704; J2795; J3010; J3490; J7120; 01480

== ENCOUNTER 2024-06-05 08:23 | Day surgery (SDC) | payer BC ==
[2024-06-05] MEDS: Lactated Ringers 1,000 ML IV SCH (08:36)
[2024-06-05] MEDS ORDERED: propofoL 50 ML ONE (09:48)
[2024-06-05] MEDS ORDERED: Propofol 200 MG/20 ML SDV ONE (10:31)
[2024-06-05] MEDS ORDERED: fentaNYL 100 MCG/2 ML SDV ONE ×3 (10:42→10:46)
[2024-06-05] MEDS ORDERED: Lidocaine 2% 11 ML Jelly Filled Syringe ONE (10:50)
[2024-06-05 11:16] VITALS: BP 119/64; PULSE 91
== END 2024-06-05 11:40 | disposition home or self-care (01) ==
LOC: MW.SDS 08:23
PROVIDERS: ATTEND Surgery
DX: K29.80 Duodenitis without bleeding (principal); K21.00 Gastro-esophageal reflux disease with esophagitis, without bleeding; R19.5 Other fecal abnormalities; K44.9 Diaphragmatic hernia without obstruction or gangrene; K57.30 Diverticulosis of large intestine without perforation or abscess without bleeding; K64.8 Other hemorrhoids; J44.9 Chronic obstructive pulmonary disease, unspecified; E78.5 Hyperlipidemia, unspecified; R68.81 Early satiety; F17.290 Nicotine dependence, other tobacco product, uncomplicated; Z79.899 Other long term (current) drug therapy
CPT/HCPCS: 43239; 45380; A9270; J2704; J3010; J7120; 00813

== ENCOUNTER 2025-09-29 06:25 | Day surgery (SDC) | payer BC ==
[2025-09-29] MEDS: Lactated Ringers 1,000 ML IV SCH (06:54)
[2025-09-29] MEDS ORDERED: dexmedeTOMIDine HCl 200 MCG/2 ML SDV ONE ×2 (06:56→07:59)
[2025-09-29] MEDS ORDERED: Dexamethasone 4 MG/ML 5 ML MDV ONE (06:56)
[2025-09-29] MEDS ORDERED: fentaNYL 100 MCG/2 ML SDV ONE ×2 (06:56→10:17)
[2025-09-29] MEDS ORDERED: propofoL 1,000 MG/100 ML 200 ML ONE (06:57)
[2025-09-29] MEDS ORDERED: Propofol 200 MG/20 ML SDV ONE ×2 (07:18→07:59)
[2025-09-29] MEDS ORDERED: Ropivacaine 0.5% 5 MG/ML 30 ML SDV ONE (07:59)
[2025-09-29] MEDS ORDERED: Morphine 10 MG/ML SDV ONE (07:59)
[2025-09-29] MEDS ORDERED: Cisatracurium Besylate 10 MG/5 ML SDV ONE (07:59)
[2025-09-29] MEDS ORDERED: ceFAZolin 2 GM in Water For Injection, Sterile 20 ML IVPUSH ONE (08:00)
[2025-09-29] MEDS ORDERED: Albuterol 0.083% 2.5 MG/3 ML Neb Soln NEB PRN (08:08)
[2025-09-29] MEDS ORDERED: Naloxone 0.4 MG/ML SDV IVPUSH PRN (08:08)
[2025-09-29] MEDS ORDERED: Ondansetron 4 MG/2 ML SDV IVPUSH PRN (08:08)
[2025-09-29] MEDS ORDERED: propofoL 1,000 MG/100 ML 100 ML ONE (09:33)
[2025-09-29] MEDS ORDERED: Ondansetron 4 MG/2 ML SDV ONE (10:21)
[2025-09-29] MEDS ORDERED: Ketorolac 30 MG/ML SDV ONE (10:21)
[2025-09-29 11:34] VITALS: PULSE 76
[2025-09-29] MEDS: fentaNYL 50 MCG/ML SDV IVPUSH PRN (11:51)
[2025-09-29 14:11] VITALS: BP 121/81
== END 2025-09-29 13:10 | disposition home or self-care (01) ==
LOC: MW.SDS 06:25
PROVIDERS: ATTEND Podiatrist Foot & Ankle Surgery
DX: T84.84XA Pain due to internal orthopedic prosthetic devices, implants and grafts, initial encounter (principal); M96.0 Pseudarthrosis after fusion or arthrodesis; I10 Essential (primary) hypertension; E78.5 Hyperlipidemia, unspecified; K21.9 Gastro-esophageal reflux disease without esophagitis; E66.9 Obesity, unspecified; Z68.30 Body mass index [BMI] 30.0-30.9, adult; Z79.899 Other long term (current) drug therapy; Y83.1 Surgical operation with implant of artificial internal device as the cause of abnormal reaction of the patient, or of later complication, without mention of misadventure at the time of the procedure
CPT/HCPCS: 20680; 20900; 28750; J0665; J0690; J1100; J1171; J1885; J2003; J2405; J2704; J3010; J7120; J7999; 01480; J1308; J2272; J2371; J2765; J2795; J3490